=== PATIENT | male | born 2000 | race Asian ===

== ENCOUNTER 2022-05-02 00:57 | Emergency (ER) | payer OTHER ==
[~2022-05-02] VITALS: Ht 177.8 cm; Wt 86.1 kg
[2022-05-02 01:53] LABS: BASO # 0.1 10^3/uL (0.0-0.2); BASO % 0.7 % (0.0-1.0); EOS # 0.1 10^3/uL (0.0-0.5); EOS % 1.2 % (0.0-3.0); HEMATOCRIT 39.6 % (42.0-52.0); LYMPH # 2.6 10^3/uL (1.5-5.0); LYMPH % 32.9 % (24.0-44.0); MEAN CORPUSCULAR HEMOGLOBIN 29.9 pg (27.0-33.0); MEAN CORPUSCULAR HGB CONC 32.8 g/dl (32.0-36.5); MONO # 0.7 10^3/uL (0.0-0.8); MONO % 8.6 % (2.0-8.0); NEUTROPHILS # 4.5 10^3/uL (1.5-8.5); NEUTROPHILS % 56.4 % (36.0-66.0); PLATELET COUNT, AUTOMATED 461 10^3/uL (150-450); RED BLOOD COUNT 4.35 10^6/uL (4.30-6.10)
[2022-05-02 02:17] LABS: BLOOD UREA NITROGEN 14 MG/DL (9-23); CALCIUM LEVEL 9.1 MG/DL (8.5-10.1); CARBON DIOXIDE LEVEL 28 MMOL/L (20-31); CHLORIDE LEVEL 107 MMOL/L (98-107); CREATININE FOR GFR 0.91 MG/DL (0.70-1.30); GLUCOSE, FASTING 84 MG/DL (60-100); POTASSIUM SERUM 4.2 MMOL/L (3.5-5.1); SODIUM LEVEL 143 MMOL/L (136-145)
[2022-05-02] MEDS ORDERED: MORPHINE 4 MG/ML 1ML VIAL IV ONE (08:20)
[2022-05-02] MEDS ORDERED: NS 1,000 ML IV ONE (08:20)
[2022-05-02] MEDS ORDERED: ONDANSETRON 4MG 2ML VIAL IV ONE (08:20)
[2022-05-02] MEDS ORDERED: ISOVUE-370 76% 100ML VIAL As Ordered ONE (08:35)
[2022-05-02 08:37] VITALS: BP 125/70
[2022-05-02 09:15] LABS: ALBUMIN 4.2 G/DL (3.2-5.2); BILIRUBIN,DIRECT 0.2 MG/DL (<0.4); BILIRUBIN,TOTAL 0.5 MG/DL (0.3-1.2); TOTAL PROTEIN 7.2 G/DL (5.7-8.2)
[2022-05-02] MEDS ORDERED: KETOROLAC 30 MG/ML 1ML VIAL IV ONE (09:40)
[2022-05-02 10:03] LABS: APPEARANCE, URINE MANUAL CLEAR (CLEAR); COLOR, URINE MANUAL YELLOW (YELLOW)
[2022-05-02 10:04] LABS: BILIRUBIN, URINE MANUAL NEGATIVE (NEGATIVE); GLUCOSE, URINE (UA) MANUAL NEGATIVE (NEGATIVE); KETONE, URINE MANUAL 1+ mg/dL (NEGATIVE); NITRITE, URINE MANUAL NEGATIVE (NEGATIVE); PROTEIN, URINE MANUAL 1+ mg/dL (NEGATIVE); SPECIFIC GRAVITY,URINE MANUAL 1.015 (1.002-1.035); UROBILINOGEN, URINE MANUAL NORMAL (NORMAL)
[2022-05-02 10:05] LABS: BLOOD URINE MANUAL NEGATIVE (NEGATIVE); LEUKOCYTE ESTERASE, URINE MAN TRACE (NEGATIVE)
[2022-05-02 10:23] LABS: RBC, URINE 0-1 /hpf (0-3)
[2022-05-02 10:24] LABS: BACTERIA, URINE SMALL AMOUNT; HYALINE CAST, URINE NONE SEEN /lpf (0-1); SQUAMOUS EPITHELIAL CELL URINE SMALL AMOUNT /hpf (SMALL AMT)
[2022-05-02] MEDS ORDERED: BACT800T5 PO (10:54)
[2022-05-02] MEDS ORDERED: KETO10TAB PO (10:54)
== END 2022-05-02 11:09 | disposition home or self-care (01) ==
LOC: M ED 00:57
DX: G89.18 Other acute postprocedural pain (principal); T81.30XA Disruption of wound, unspecified, initial encounter; R10.31 Right lower quadrant pain; F17.200 Nicotine dependence, unspecified, uncomplicated; Z79.899 Other long term (current) drug therapy
CPT/HCPCS: 71260; 74177; 80048; 80076; 81000; 83690; 85025; 86850; 86900; 86901; 87086; 96361; 96374; 96375; 99283; J2405

== ENCOUNTER 2022-11-17 10:19 | Emergency (ER) | payer OTHER ==
[~2022-11-17] VITALS: Ht 177.8 cm; Wt 110.0 kg
[~2022-11-17 10:19] MED LIST: BACT800T5 PO; KETO10TAB PO
[2022-11-17] MEDS ORDERED: IBUP200T46 PO (10:38)
[2022-11-17] MEDS ORDERED: diphenhydrAMINE 50MG/ML VIAL IV ONE (12:20)
[2022-11-17] MEDS ORDERED: NS 1,000 ML IV ONE (12:20)
[2022-11-17] MEDS ORDERED: KETOROLAC 30 MG/ML 1ML VIAL IV ONE (12:20)
[2022-11-17] MEDS ORDERED: METOCLOPRAMIDE INJ 10MG/2ML VIAL IV ONE (12:20)
[2022-11-17] MEDS ORDERED: ACETAMINOPHEN 1000MG 100ML IV BAG IV ONE (12:20)
[2022-11-17 13:01] LABS: BASO # 0.1 10^3/uL (0.0-0.2); EOS # 0.1 10^3/uL (0.0-0.5); EOS % 2.1 % (0.0-3.0); HEMATOCRIT 45.3 % (42.0-52.0); HEMOGLOBIN 15.4 g/dl (13.5-17.5); LYMPH # 2.4 10^3/uL (1.5-5.0); LYMPH % 38.4 % (24.0-44.0); MEAN CORPUSCULAR HEMOGLOBIN 29.8 pg (27.0-33.0); MEAN CORPUSCULAR VOLUME 87.8 fl (80.0-96.0); MONO # 0.5 10^3/uL (0.0-0.8); MONO % 8.7 % (2.0-8.0); NEUTROPHILS # 3.1 10^3/uL (1.5-8.5); NEUTROPHILS % 49.6 % (36.0-66.0); PLATELET COUNT, AUTOMATED 341 10^3/uL (150-450); RED BLOOD COUNT 5.16 10^6/uL (4.30-6.10); WHITE BLOOD COUNT 6.2 10^3/uL (4.0-10.0)
[2022-11-17 13:15] LABS: BLOOD UREA NITROGEN 10 MG/DL (9-23); CALCIUM LEVEL 9.2 MG/DL (8.5-10.1); CARBON DIOXIDE LEVEL 29 MMOL/L (20-31); CHLORIDE LEVEL 105 MMOL/L (98-107); GLUCOSE, FASTING 92 MG/DL (60-100); POTASSIUM SERUM 4.4 MMOL/L (3.5-5.1); SODIUM LEVEL 142 MMOL/L (136-145)
[2022-11-17 13:18] LABS: FREE T4 1.41 NG/DL (0.83-1.43); THYROID STIMULATING HORMONE 1.313 uIU/ML (0.48-4.17)
[2022-11-17] MEDS ORDERED: PROHANCE 279.3MG/ML 5ML VIAL As Ordered ONE (16:25)
[2022-11-17] MEDS ORDERED: PROHANCE 279.3MG/ML 15ML VIAL As Ordered ONE (16:25)
[2022-11-17 17:42] VITALS: BP 142/81; TEMP 98.4; O2SAT 99
== END 2022-11-17 17:46 | disposition home or self-care (01) ==
LOC: M ED 10:19
DX: F07.81 Postconcussional syndrome (principal); R51.9 Headache, unspecified; R41.3 Other amnesia
CPT/HCPCS: 70450; 70553; 80048; 84439; 84443; 85025; 96374; 96375; 99284; A9576; J0131; J1200; J1885; J2765

== ENCOUNTER 2023-01-02 06:57 | Emergency (ER) | payer OTHER ==
[~2023-01-02] VITALS: Ht 177.8 cm; Wt 94.8 kg
[~2023-01-02 06:57] MED LIST changes: +IBUP200T46 PO
[2023-01-02] MEDS ORDERED: LIDOCAINE 5% (LIDODERM) PATCH TD ONE (08:15)
[2023-01-02] MEDS ORDERED: methocarbamoL 750 MG TAB PO ONE (08:15)
[2023-01-02] MEDS ORDERED: KETOROLAC 60MG 2ML VIAL IM ONE (08:15)
[2023-01-02] MEDS ORDERED: ISOVUE-370 76% 100ML VIAL As Ordered ONE (09:32)
[2023-01-02 09:42] LABS: BASO # 0.1 10^3/uL (0.0-0.2); BASO % 0.8 % (0.0-1.0); EOS # 0.4 10^3/uL (0.0-0.5); EOS % 3.6 % (0.0-3.0); HEMATOCRIT 43.9 % (42.0-52.0); HEMOGLOBIN 15.4 g/dl (13.5-17.5); LYMPH # 2.6 10^3/uL (1.5-5.0); MEAN CORPUSCULAR HEMOGLOBIN 30.3 pg (27.0-33.0); MEAN CORPUSCULAR HGB CONC 35.1 g/dl (32.0-36.5); MEAN CORPUSCULAR VOLUME 86.4 fl (80.0-96.0); MONO # 1.1 10^3/uL (0.0-0.8); MONO % 11.6 % (2.0-8.0); NEUTROPHILS # 5.5 10^3/uL (1.5-8.5); NEUTROPHILS % 56.8 % (36.0-66.0); PLATELET COUNT, AUTOMATED 307 10^3/uL (150-450); RED BLOOD COUNT 5.08 10^6/uL (4.30-6.10); WHITE BLOOD COUNT 9.8 10^3/uL (4.0-10.0)
[2023-01-02] MEDS ORDERED: METH-1165 PO (10:54)
[2023-01-02] MEDS ORDERED: ASPE4PAD TOP (10:54)
[2023-01-02 11:09] VITALS: BP 135/93; TEMP 98.5; O2SAT 98
== END 2023-01-02 11:12 | disposition home or self-care (01) ==
LOC: M ED 06:57
DX: M54.50 Low back pain, unspecified (principal); Z79.891 Long term (current) use of opiate analgesic; Z79.899 Other long term (current) drug therapy
CPT/HCPCS: 74177; 80047; 85025; 96372; 99283; J1885; Q9967